=== PATIENT | male | born 1970 | race Caucasian/White ===

== ENCOUNTER 2023-08-17 05:47 | Outpatient (CLI) | payer BC ==
[~2023-08-17] VITALS: Ht 188 cm; Wt 132.4 kg
[2023-08-22] MEDS ORDERED: POTA99CA PO ×2 (09:33)
[2023-08-22] MEDS ORDERED: ROSU20TA73 PO ×2 (09:33)
[2023-08-22] MEDS ORDERED: NEBI20TA6 PO ×2 (09:33)
[2023-08-22] MEDS ORDERED: LORA10CA PO ×2 (09:33)
[2023-08-22] MEDS ORDERED: MULT-1136 PO ×2 (09:33)
[2023-08-22] MEDS ORDERED: AZIL1TAB2 PO ×2 (09:33)
== END 2023-08-22 09:38 | disposition home or self-care (01) ==
LOC: PREOP 05:47
PROVIDERS: ATTEND Surgery
DX: Z01.818 Encounter for other preprocedural examination (principal)

== ENCOUNTER 2023-08-24 10:41 | Day surgery (SDC) | payer BC ==
[~2023-08-24] VITALS: Ht 188 cm; Wt 132.4 kg
[~2023-08-24 10:41] MED LIST: AZIL1TAB2 PO; LORA10CA PO; MULT-1136 PO; NEBI20TA6 PO; POTA99CA PO; ROSU20TA73 PO
[2023-08-24] MEDS ORDERED: LACTATED RINGERS 1,000 ML 1,000 ML IV STA (10:47)
[2023-08-24 11:06] VITALS: BP 128/91
--- NOTE | 2023-08-24 11:28 | Progress Note-Pre Operative ---
Pre-Operative Progress Note Date of Available H&P: Aug 24, 2023 Date H&P Reviewed: Aug 24, 2023 Time H&P Reviewed: 11:00 History & Physical: No changes noted Pre-Operative Diagnosis: screening o AURELIA BRENNER MD Aug 24, 2023 11:28
--- NOTE | 2023-08-24 11:29 | Discharge Inst-Surgical ---
D/C Lap Instructions-ELIDIA Follow Up Activity as tolerated High Fiber Diet 25g or more per day Avoid Alcohol, Caffeine, Spicy [place] and Acid foods. Drink 64 fluid oz or more of fluids per day. Symptoms to Report: Fever over 101 degree F, Nausea/Vomiting If any problems/questions: Contact your physician or go to Emergency Room AURELIA BRENNER MD Aug 24, 2023 11:29
[2023-08-24] MEDS ORDERED: ONDANSETRON 4 MG ORAL DISSOLVE TABLET PO PRN (11:30)
[2023-08-24] MEDS ORDERED: ONDANSETRON INJECTION 4 MG/2 ML (SDV) IVP PRN (11:30)
[2023-08-24] MEDS ORDERED: LIDOCAINE JELLY 2% 6 ML SYRINGE ONE (12:06)
[2023-08-24 12:45] VITALS: BP 107/65
[2023-08-24] MEDS ORDERED: LIDOCAINE JELLY 2% 6 ML SYRINGE TOP ONE (12:45)
--- NOTE | 2023-08-24 12:48 | Progress Note-Post Operative ---
Post-Operative Progess Note Surgeon (s)/Risk Control Field Representative (s) Surgeon AURELIA BRENNER MD Risk Control Field Representative: none Pre-Operative Diagnosis screening colo Post-Operative Diagnosis mild chronic stage 2 ext and int hemorrhoids, mild sigmoid diverticulosis. Procedure & Operative Findings Date of Procedure 08/24/23 Procedure Performed/Findings colonoscopy Anesthesia Type mac Estimated Blood Loss Estimated blood loss (mL): minimal Specimens/Packing Specimens Removed none AURELIA BRENNER MD Aug 24, 2023 12:48
[2023-08-24 13:20] VITALS: BP 107/65
--- NOTE | 2023-08-24 15:35 | Anesthesia-General Post-Op ---
MAC Patient Condition Mental Status/LOC: Same as Preop Cardiovascular: Satisfactory Nausea/Vomiting: Absent Respiratory: Satisfactory Pain: Controlled Complications: Absent Post Op Complications Complications None Follow Up Care/Instructions Patient Instructions None needed. Anesthesiology Discharge Order Discharge Order Patient is doing well, no complaints, stable vital signs, no apparent adverse anesthesia problems. No complications reported per nursing. BHARATH RAMIRES CRNA Aug 24, 2023 15:35
--- NOTE | 2023-08-24 18:46 | OPERATIVE REPORT ---
DATE OF SERVICE: 08/24/2023 ATTENDING PRIMARY CARE PHYSICIAN: Dr. Miko Jin. PREOPERATIVE DIAGNOSIS: Screening colonoscopy. POSTOPERATIVE DIAGNOSES: Mild chronic stage II external and internal hemorrhoids, mild sigmoid diverticulosis. PROCEDURE: Colonoscopy. SURGEON: Aurelia Brenner M.D. ANESTHESIA: Monitored anesthesia care. ESTIMATED BLOOD LOSS: Minimal. FINDINGS: Mild chronic stage II external and internal hemorrhoids, mild sigmoid diverticulosis. DISPOSITION: The patient tolerated the procedure well. INDICATIONS: The patient is a 53-year-old male in need of a screening colonoscopy. He did have a colonoscopy approximately 10 years ago and states that this was normal. He states that he is otherwise doing well, does not report any major issues with diarrhea, nor constipation as well as no red blood per rectum, nor any dark tarry stools. He also does not report any family history of colon cancer. DESCRIPTION OF PROCEDURE: The patient was brought to the endoscopy suite and laid in the left lateral decubitus position. After adequate IV pain and sedative medications and monitored anesthesia care, a digital rectal examination was performed. Mild chronic stage II external and internal hemorrhoids were identified, not actively edematous nor inflamed and no bleeding. Normal sphincter tone was felt and there were no palpable masses. Prostate gland was palpable and appeared normal. The endoscope was then intubated into the anus and rectum gently insufflated. The endoscope was then advanced through the valves of Vasquez of the rectum and no polyps or any neoplasms identified. We then proceeded through the sigmoid colon where mild sigmoid diverticulosis was identified. The endoscope was then advanced to the remainder of the descending, transverse and ascending colon to the cecum, which were normal. No polyps or any neoplasms identified. The endoscope was then slowly withdrawn while taking a second look and suctioning of residual air with no additional findings. The patient tolerated the procedure well. We will recommend continued medical management with a high-fiber diet with addition of a fiber supplement, which are equal or exceed 30 grams daily as well as significant amounts of water to promote soft consistency stools on a daily basis. If he is asymptomatic, he does not need another colonoscopy for another 10 years. Job ID: [id number] DocumentID: [id number] Dictated Date: 08/24/2023 12:44:55 Optical Brightener Maker Helper Date: 08/24/2023 18:43:00 Dictated By: AURELIA BRENNER MD
== END 2023-08-24 13:20 | disposition home or self-care (01) ==
LOC: ENDO 10:41
PROVIDERS: ATTEND Surgery
DX: Z12.11 Encounter for screening for malignant neoplasm of colon (principal); K57.30 Diverticulosis of large intestine without perforation or abscess without bleeding; K64.1 Second degree hemorrhoids; K64.4 Residual hemorrhoidal skin tags; E66.9 Obesity, unspecified; Z68.37 Body mass index [BMI] 37.0-37.9, adult